=== PATIENT | female | born 1965 | race Caucasian/White ===

== ENCOUNTER → 2023-11-04 14:25 | Outpatient (REF) | payer BC, SELFPAY | LOC: WDC 14:25 | PROVIDERS: ATTENDING PHYSICIAN Obstetrics & Gynecology Gynecology; FAMILY PHYSICIAN Physician Assistant | DX: Z12.31 Encounter for screening mammogram for malignant neoplasm of breast (principal) | CPT/HCPCS: 77063; 77067 ==

== ENCOUNTER 2024-04-24 06:52 | Day surgery (SDC) | payer BC, SELFPAY ==
[2024-04-17 12:10] VITALS: BMI 29.5
[2024-04-24] VITALS (12 sets, daily range): BP systolic 128–161; BP diastolic 71–91; BMI 29.4
[2024-04-24] MEDS: HEPARIN 5000 UNITS SC (10:21)
[2024-04-24] MEDS: Pyridium 200 MG PO (10:21)
[2024-04-24] MEDS: NORMOSOL-R/PLASMALYTE-A 1000 IV (10:25)
== END 2024-04-24 18:08 | disposition home or self-care (01) ==
LOC: SDS 06:52
PROVIDERS: ATTENDING PHYSICIAN Obstetrics & Gynecology; FAMILY PHYSICIAN Physician Assistant; OTHER PHYSICIAN Obstetrics & Gynecology Gynecology
DX: N81.6 Rectocele (principal); N95.2 Postmenopausal atrophic vaginitis; N39.41 Urge incontinence; N80.03 Adenomyosis of the uterus; D25.1 Intramural leiomyoma of uterus
CPT/HCPCS: 57425; 58542; 57250; 88305; 88307; 88311; 36415; 86850; 86900; 86901; 93005; C1763; J1580

== ENCOUNTER 2025-02-03 09:26 | Emergency (ER) | payer BC, SELFPAY ==
[2025-02-03 09:34] VITALS: BP 149/82
[2025-02-03 11:13] VITALS: BP 127/68
--- NOTE | 2025-02-03 11:19 | ED.GENMED ---
History of Present Illness
General
Chief Complaint: Head Injury
Source: patient
Exam Limitations: none
Time Seen by Provider: 02/03/25 10:53
History of Present Illness
History of Present Illness:
60-year-old female presents for evaluation of head injury. She was trying to get out of her tub and slipped out of her tub and hit the back of her head against a shower chair. She has a history of traumatic brain injury. She has chronic
headaches. She takes Nurtec every other day as well as magnesium daily for her headaches. She notes increased headache in the posterior aspect of her head. She also notes upper neck pain. No new paresthesias to the arms. She is not
anticoagulated.
Past History
Past History
ED Past Medical History: Other (Patient has a history of depression, diarrhea, frequent urination, dyspnea, tingling in the arms and legs)
ED Past Surgical History: Other (H. as had bladder surgery for incontinence, and hernia repair)
Social History
Living: with family
Employment: Employed
Phy Exam
Physical Exam
Physical Exam:
General: Well-appearing female no acute respiratory distress
HEENT: Normocephalic subtle soft tissue swelling noted of the posterior scalp pupils equal round reactive to light
Musculoskeletal exam: Cervical spine is tender over the midline of the upper cervical spine
Neurologic alert oriented to person and place and time. No deficit noted in the upper or lower extremities
Course
Orders/Labs/Results
Orders:
Orders
02/03/25 09:42
CT Head W/o Iv Contrast Urgent
Comment:
Reason For Exam: head injury w/ hx of TBI
02/03/25 11:05
CT Cervical Spine W/o Iv Contr Urgent
Comment:
Reason For Exam: fall, neck pain
Vital Signs
Initial and Last Documented VS:
Initial Vital Signs
Temp Pulse Resp BP Pulse Ox
97.6 F 80 16 149/82 100
02/03/25 09:34 02/03/25 09:34 02/03/25 09:34 02/03/25 09:34 02/03/25 09:34
Last Documented Vital Signs
Temp Pulse Resp BP Pulse Ox
97.6 F 80 16 149/82 100
02/03/25 09:34 02/03/25 09:34 02/03/25 09:34 02/03/25 09:34 02/03/25 09:34
MDM/Problems Addressed
Differential Diagnosis Includes:
Close head injury. Differential includes but not limited to contusion versus skull fracture versus intracranial hemorrhage vs concussion or cervical spine fracture. Cervical spine CT pending however CT of head was ordered through triage this was
negative for acute traumatic injury
*Critical Care Note
Total Time (30-74mins, 75-104mins- exclusive of procedures): Not Applicable
Update Note
Update Note:
CT cervical spine negative for acute traumatic injury. Patient reassured. Concussion precautions were given. Stable for discharge
ED Attending Note
-
Portions of this chart may have been created with voice recognition software.� Occasional wrong word or��sound alike� substitutions may have occurred due to the inherent limitations of voice recognition software.
Discharge Plan
Departure
Patient Disposition: Home (Routine Discharge)
Date of Disposition: 02/03/25
Time of Disposition: 12:55
Patient with high blood pressure during this ER visit?: No
Discharge Problem:
Closed head injury
Instructions: Concussion, Adult (DC)
Prescriptions:
No Action
lisinopril 10 mg Tablet
10 mg PO DAILY
lamotrigine 100 mg Tablet
50 mg PO BID
rosuvastatin [Crestor] 20 mg Tablet
20 mg PO DAILY
DENNY-e 400 mg Tablet
400 mg PO HS
Ajovy Autoinjector 225 mg/1.5 mL Auto-Injector
225 mg SC QMONTH
Curcumin 95 % Powder
1 ea MISCELLANEOUS DAILY
magnesium citrate
1 tab PO DAILY
Referrals:
Erika Ferrera PA [Family Provider, Family Practice]
Activity Restrictions/Additional Instructions:
Rest. Continue your headache regimen. You may ice to the sore spot. Return if worse otherwise follow-up with your doctor
Interventions
Interventions:
*Risk Screen - Suicide Last Done: 02/03/25 11:49
*General Assessment Last Done: 02/03/25 11:49
*Neglect/Abuse Screening Last Done: 02/03/25 11:49
*ED- Fall Risk Assessment Last Done: 02/03/25 11:49
*ED COVID-19 Vaccine History Last Done: 02/03/25 11:49
ED- Neurological Assessment Last Done: 02/03/25 11:49
ED-Skin Assessment Last Done: 02/03/25 11:49
Discharge Date and Time
Print Language: TUNISIAN
== END 2025-02-03 13:37 | disposition home or self-care (01) ==
LOC: EMR 09:26
PROVIDERS: EMERGENCY PHYSICIAN Emergency Medicine; FAMILY PHYSICIAN Physician Assistant
DX: S09.90XA Unspecified injury of head, initial encounter (principal); W18.2XXA Fall in (into) shower or empty bathtub, initial encounter; Z87.820 Personal history of traumatic brain injury; Z98.890 Other specified postprocedural states
CPT/HCPCS: 99284; 70450; 72125